=== PATIENT | female | born 1965 | race Caucasian/White ===

== ENCOUNTER 2024-07-02 04:13 | Day surgery (SDC) | payer OTHER ==
[2024-07-01 09:50] VITALS: BMI 26.2
[2024-07-02] MEDS ORDERED: LIDOCAINE 1%/EPI 1:100000 (20 ML MULTI DOSE VIAL) ONE (07:42)
[2024-07-02] MEDS ORDERED: BUPIVACAINE HCL/PF 0.25% (2.5MG/ML) 10 ML VIAL ONE (07:42)
[2024-07-02] MEDS ORDERED: HYDROmorphone HCl 2 MG/ML VIAL ONE (07:48)
[2024-07-02] MEDS ORDERED: MIDAZOLAM HCL 2 MG/2 ML SINGLE DOSE VIAL ONE (07:48)
[2024-07-02] MEDS ORDERED: ONDANSETRON 4 MG/2 ML VIAL ONE (07:48)
[2024-07-02] MEDS ORDERED: ceFAZolin SODIUM 1 GM VIAL ONE (07:48)
[2024-07-02] MEDS ORDERED: DEXAMETHASONE SOD PHOSPHATE 4 MG/1 ML VIAL ONE (07:48)
[2024-07-02] MEDS ORDERED: LIDOCAINE HCL/PF 2% SDV 5ML VIAL ONE (07:48)
[2024-07-02] MEDS ORDERED: SUGAMMADEX SODIUM 200 MG/2 ML VIAL ONE (07:49)
[2024-07-02] MEDS ORDERED: ROCURONIUM BROMIDE 50 MG/5 ML SYRINGE ONE ×2 (07:49→09:37)
[2024-07-02] MEDS ORDERED: PROPOFOL 20 ML ONE ×2 (07:49→10:26)
[2024-07-02] MEDS ORDERED: SEVOFLURANE 250 ML BTL ONE (07:50)
[2024-07-02] MEDS ORDERED: ONDANSETRON 4 MG/2 ML VIAL IVPUSH PRN (08:03)
[2024-07-02] MEDS ORDERED: oxyCODONE HCL 5 MG TABLET PO PRN ×2 (08:03)
[2024-07-02] MEDS ORDERED: LACTATED RINGERS SOLUTION 1,000 ML IV SCH (08:15)
[2024-07-02] MEDS: ceFAZolin SODIUM 1 GM VIAL IVPB ONE (08:30)
[2024-07-02] MEDS: LIDOCAINE 1%/EPI 1:100000 (20 ML MULTI DOSE VIAL) IJ ONE (08:43)
[2024-07-02] MEDS ORDERED: ACETAMINOPHEN INJECTION 100 ML IVPB ONE (09:36)
[2024-07-02] MEDS ORDERED: KETOROLAC TROMETHAMINE 30 MG/1 ML VIAL ONE (09:51)
[2024-07-02 13:08] VITALS: RESP 16
[2024-07-02 14:25] VITALS: BP 153/60; PULSE 69; TEMP 97.7
== END 2024-07-02 14:35 | disposition home or self-care (01) ==
LOC: JASU-SURG 04:13
PROVIDERS: ATTEND Specialist
PROC: 0UT04ZZ Resection of Right Ovary, Percutaneous Endoscopic Approach (ICD-10-PCS; 2024-07-02)
PROC: 0UT54ZZ Resection of Right Fallopian Tube, Percutaneous Endoscopic Approach (ICD-10-PCS; principal; 2024-07-02 08:00)
DX: D27.0 Benign neoplasm of right ovary (principal); N94.89 Other specified conditions associated with female genital organs and menstrual cycle
CPT/HCPCS: 86850; 86900; 86901; 88108; 88305-TC; 94760; J0131